=== PATIENT | female | born 1965 | race African-American/Black ===

== ENCOUNTER 2016-10-26 18:05 | Emergency (ER) | payer MEDICARE, MEDICAID ==
[~2016-10-26] VITALS: Ht 160 cm; Wt 76.8 kg
[~2016-10-26 18:05] MED LIST: ADIPEX-P37.5 MG PO; AMITRIPTYLINE H75 M1 PO; AMOXICILLIN 8751 TAB PO; ATIVAN2 MG PO; B/P MED; BACTRIM DS 8001 TAB PO; BYSTOLIC2.5 MG; CELEXA 20MG20 MG/TAB PO; CEPHALEXIN500 M1 PO; CHLORTHALID PO; CIPRO 500MG TA500 MG PO; COZAAR 25MG25 MG/TAB PO; COZAAR100 MG PO; HYGROTON25 MG PO; IMITREX 25MG TA25 MG PO; LEVAQUIN 750MG750 M1 PO; LORTAB 7.5/5001 TAB PO; NEURONTIN600 MG/TAB PO; NEXIUM 40MG40 MG PO; NORVASC 10MG10 MG PO; PERCOCET 325 MG1 TA2 PO; PHENERGAN 25 TA25 MG PO; PHENERGAN25 MG RC; PRIL40 PO; REGLAN 10MG10 MG/TAB PO; RESTORIL30 MG PO; RYBIX ODT50 MG; ULTRAM ER100 MG
[2016-10-26 18:07] VITALS: TEMP 98.8
[2016-10-26] MEDS ORDERED: MACROBID 1100 MG/CAP PO (18:13)
[2016-10-26] MEDS ORDERED: ZANAFLEX CAPSULE2 MG PO (18:16)
[2016-10-26] MEDS ORDERED: DESYREL 50MG50 MG PO (18:16)
[2016-10-26] MEDS ORDERED: RESTORIL30 MG (18:16)
[2016-10-26 18:51] LABS: PH 5 (5-8); URINE APPEARANCE Hazy; URINE BACTERIA None Seen /hpf; URINE BILIRUBIN Negative (NEGATIVE); URINE BLOOD Negative (NEGATIVE); URINE COLOR Yellow; URINE GLUCOSE Negative (NEGATIVE); URINE KETONE Negative (NEGATIVE); URINE UROBILINOGEN Negative (NEGATIVE)
[2016-10-26 19:00] LABS: ADJUSTED CALCIUM 9.4 mg/dL (8.4-10.2); ALANINE AMINOTRANSFERASE 31 U/L (9-52); ALBUMIN 3.8 gm/dL (3.5-5.0); ALKALINE PHOSPHATASE 101 U/L (50-136); ANION GAP 3 mmol/L (7-16); BILIRUBIN,TOTAL 0.6 mg/dL (0.0-1.0); BLOOD UREA NITROGEN 14 mg/dL (7-17); C-REACTIVE PROTEIN < 0.5 mg/dL (0.0-0.9); CALCIUM 9.2 mg/dL (8.4-10.2); CARBON DIOXIDE 25 mmol/L (22-30); CHLORIDE 105 mmol/L (98-107); GLUCOSE 87 mg/dL (74-106); LIPASE 93 U/L (23-300); POTASSIUM 3.6 mmol/L (3.4-5.0); SODIUM 133 mmol/L (137-145); TOTAL PROTEIN 7.1 gm/dL (6.4-8.2)
[2016-10-26 19:02] LABS: BASO % 0.6 % (0.0-2.0); EOS % 0.8 % (0-4.0); GRAN # 2.3 (1.4-6.5); GRAN % 42.9 % (42.2-75.2); LYMPH # 2.8 (1.2-3.4); LYMPH % 51.8 % (20.0-51.0); MEAN CELL VOLUME 93 fl (80.0-100.0); MEAN CORPUSCULAR HGB CONC 34 g/dl (33.0-37.0); MEAN PLATELET VOLUME 9.4 fl (7.4-10.4); MONO # 0.2 (0.1-0.6); MONO % 3.9 % (1.7-9.3); PLATELET COUNT 185 K/mm3 (130-400); RED BLOOD COUNT 3.59 M/mm3 (4.10-5.30); REDCELL DISTRIBUTION WIDTH-CV 12.3 % (11.5-14.5); WHITE BLOOD COUNT 5.3 K/mm3 (4.8-10.8)
[2016-10-26 19:03] LABS: HEMATOCRIT 33.5 % (37.0-47.0); HEMOGLOBIN 11.5 g/dl (12.5-16.0); MEAN CORPUSCULAR HEMOGLOBIN 32 pg (27.0-31.0)
[2016-10-26] MEDS ORDERED: ZOFRAN ODT4 MG PO (19:53)
[2016-10-26] MEDS ORDERED: NORCO 325 MG-51 TAB PO (19:53)
[2016-10-26 20:36] VITALS: BP 107/68; PULSE 70
[2016-11-20] MEDS ORDERED: CARAFATE 1GM1 G PO (15:52)
[2016-11-20] MEDS ORDERED: PRILOSEC 20MG20 MG PO (15:52)
== END 2016-10-26 20:38 | disposition home or self-care (01) ==
LOC: COL.ER 18:05
PROVIDERS: Emergency Medicine
DX: R10.13 Epigastric pain (principal); R11.2 Nausea with vomiting, unspecified; I10 Essential (primary) hypertension
CPT/HCPCS: J1170; J2405; J2550; J7030; Q9967

== ENCOUNTER → 2016-11-15 | Outpatient (CLI) | payer MEDICARE, MEDICAID ==
[~2016-11-15] MED LIST changes: +CARAFATE 1GM1 G PO; +DESYREL 50MG50 MG PO; +MACROBID 1100 MG/CAP PO; +NORCO 325 MG-51 TAB PO; +PRILOSEC 20MG20 MG PO; +RESTORIL30 MG; +ZANAFLEX CAPSULE2 MG PO; +ZOFRAN ODT4 MG PO
== END ==
LOC: COL.RAD 13:16
DX: M25.851 Other specified joint disorders, right hip (principal); R93.7 Abnormal findings on diagnostic imaging of other parts of musculoskeletal system
CPT/HCPCS: A9585; Q9967

== ENCOUNTER → 2016-11-20 | Outpatient (CLI) | payer MEDICARE, MEDICAID ==
[~2016-11-20] VITALS: Ht 160 cm; Wt 78.7 kg
[2016-11-20 15:54] VITALS: BP 127/73; PULSE 69
== END ==
LOC: LIGHT 09:21
DX: F32.89 Other specified depressive episodes (principal); Z98.84 Bariatric surgery status; E66.8 Other obesity; Z68.30 Body mass index [BMI] 30.0-30.9, adult; K43.9 Ventral hernia without obstruction or gangrene; Z93.3 Colostomy status

== ENCOUNTER → 2016-12-31 | Outpatient (CLI) | payer MEDICARE, MEDICAID | LOC: COL.RAD 08:00 | DX: R10.84 Generalized abdominal pain (principal); Z98.84 Bariatric surgery status ==

== ENCOUNTER 2017-08-15 11:13 | Emergency (ER) | payer MEDICARE, MEDICAID ==
[~2017-08-15] VITALS: Ht 160 cm; Wt 81.8 kg
[2017-08-15 11:21] VITALS: TEMP 98.5
[2017-08-15 12:56] LABS: BASO % 0.4 % (0.0-2.0); EOS # 0.1 (0.0-0.7); EOS % 1.3 % (0-4.0); GRAN # 2.8 (1.4-6.5); GRAN % 52.8 % (42.2-75.2); LYMPH # 2.1 (1.2-3.4); MEAN CELL VOLUME 96 fl (80.0-100.0); MEAN CORPUSCULAR HGB CONC 34 g/dl (33.0-37.0); MEAN PLATELET VOLUME 9.6 fl (7.4-10.4); MONO # 0.3 (0.1-0.6); MONO % 5.1 % (1.7-9.3); PLATELET COUNT 177 K/mm3 (130-400); RED BLOOD COUNT 3.64 M/mm3 (4.10-5.30); REDCELL DISTRIBUTION WIDTH-CV 12.8 % (11.5-14.5)
[2017-08-15 13:02] LABS: HEMATOCRIT 34.9 % (37.0-47.0); HEMOGLOBIN 11.8 g/dl (12.5-16.0); MEAN CORPUSCULAR HEMOGLOBIN 32 pg (27.0-31.0)
[2017-08-15 13:05] LABS: ALBUMIN 3.9 gm/dL (3.5-5.0); BILIRUBIN,TOTAL 0.6 mg/dL (0.0-1.0); C-REACTIVE PROTEIN 0.9 mg/dL (0.0-0.9); CREATININE, serum 0.66 mg/dL (0.52-1.25); POTASSIUM 3.8 mmol/L (3.4-5.0)
[2017-08-15 13:17] LABS: INFLUENZA A NEGATIVE; INFLUENZA B NEGATIVE
[2017-08-15 13:19] LABS: COLLECTION METHOD CLEAN CATCH
[2017-08-15 13:33] LABS: MUCOUS Present /lpf; PH 5 (5-8); URINE APPEARANCE Hazy; URINE BACTERIA Rare /hpf; URINE BILIRUBIN Negative (NEGATIVE); URINE BLOOD Negative (NEGATIVE); URINE COLOR Yellow; URINE GLUCOSE Negative (NEGATIVE); URINE KETONE Negative (NEGATIVE); URINE LEUKOCYTE ESTERASE Negative (NEGATIVE); URINE NITRATE Positive (NEGATIVE); URINE PROTEIN(semi-quant) Negative (NEGATIVE); URINE RBC 0-2 /hpf; URINE UROBILINOGEN Negative (NEGATIVE)
[2017-08-15] MEDS ORDERED: ZOFRAN ODT4 MG PO (15:38)
[2017-08-15] MEDS ORDERED: NORCO 325 MG-51 TAB PO (15:38)
[2017-08-15] MEDS ORDERED: CARAFATE 1GM1 G PO (15:47)
[2017-08-15] MEDS ORDERED: CEPHALEXIN500 M1 PO (16:02)
[2017-08-15 16:24] VITALS: BP 109/68; PULSE 67
== END 2017-08-15 16:30 | disposition home or self-care (01) ==
LOC: COL.ER 11:13
PROVIDERS: Emergency Medicine
DX: R10.9 Unspecified abdominal pain (principal); Z85.038 Personal history of other malignant neoplasm of large intestine; Z90.710 Acquired absence of both cervix and uterus; Z90.49 Acquired absence of other specified parts of digestive tract
CPT/HCPCS: J1170; J2405; J7030; Q9967

== ENCOUNTER 2017-08-18 10:34 | Emergency (ER) | payer MEDICARE, MEDICAID ==
[~2017-08-18] VITALS: Ht 160 cm; Wt 81.8 kg
[2017-08-18 10:42] VITALS: TEMP 98.3
[2017-08-18 11:24] LABS: COLLECTION METHOD CLEAN CATCH
[2017-08-18 11:27] LABS: BASO % 0.2 % (0.0-2.0); EOS # 0.1 (0.0-0.7); GRAN # 3.2 (1.4-6.5); GRAN % 65.2 % (42.2-75.2); LYMPH # 1.4 (1.2-3.4); LYMPH % 29.1 % (20.0-51.0); MEAN CELL VOLUME 94 fl (80.0-100.0); MEAN CORPUSCULAR HGB CONC 35 g/dl (33.0-37.0); MEAN PLATELET VOLUME 9.3 fl (7.4-10.4); MONO # 0.2 (0.1-0.6); MONO % 4.3 % (1.7-9.3); PLATELET COUNT 179 K/mm3 (130-400); RED BLOOD COUNT 3.57 M/mm3 (4.10-5.30); REDCELL DISTRIBUTION WIDTH-CV 12.3 % (11.5-14.5)
[2017-08-18 11:28] LABS: HEMATOCRIT 33.7 % (37.0-47.0); HEMOGLOBIN 11.7 g/dl (12.5-16.0); MEAN CORPUSCULAR HEMOGLOBIN 33 pg (27.0-31.0)
[2017-08-18 11:30] LABS: MUCOUS Present /lpf; PH 5 (5-8); SQUAMOUS EPITHELIAL 0-2 /hpf; URINE APPEARANCE Hazy; URINE BACTERIA None Seen /hpf; URINE BILIRUBIN Negative (NEGATIVE); URINE BLOOD Negative (NEGATIVE); URINE COLOR Amber; URINE GLUCOSE Negative (NEGATIVE); URINE KETONE Trace (NEGATIVE); URINE LEUKOCYTE ESTERASE Negative (NEGATIVE); URINE NITRATE Negative (NEGATIVE); URINE PROTEIN(semi-quant) Negative (NEGATIVE); URINE RBC 0-2 /hpf; URINE UROBILINOGEN Negative (NEGATIVE)
[2017-08-18 11:40] LABS: ALBUMIN 3.5 gm/dL (3.5-5.0); BILIRUBIN,TOTAL 0.6 mg/dL (0.0-1.0); C-REACTIVE PROTEIN 2.9 mg/dL (0.0-0.9); CALCIUM 9.2 mg/dL (8.4-10.2); CREATININE, serum 0.66 mg/dL (0.52-1.25); POTASSIUM 3.6 mmol/L (3.4-5.0); TOTAL PROTEIN 6.6 gm/dL (6.4-8.2)
[2017-08-18] MEDS ORDERED: LEVAQUIN 750MG750 M1 PO (14:58)
[2017-08-18] MEDS ORDERED: PHENERGAN 25 TA25 MG PO (14:58)
[2017-08-18 15:40] VITALS: BP 126/88; PULSE 68
[2017-08-20] MEDS ORDERED: NEXIUM 40MG40 MG PO (00:41)
== END 2017-08-18 15:40 | disposition home or self-care (01) ==
LOC: COL.ER 10:34
PROVIDERS: Emergency Medicine
DX: J18.9 Pneumonia, unspecified organism (principal); R11.2 Nausea with vomiting, unspecified; R10.13 Epigastric pain; Z93.3 Colostomy status; Z90.49 Acquired absence of other specified parts of digestive tract; Z85.038 Personal history of other malignant neoplasm of large intestine
CPT/HCPCS: J2405; J2550; J7030; Q9967

== ENCOUNTER → 2017-08-20 | Outpatient (CLI) | payer MEDICARE, MEDICAID ==
[2017-08-20 14:23] LABS: CHOLESTEROL RISK RATIO 1.6
[2017-08-20 14:54] LABS: THYROID STIMULATING HORMONE 0.795 uIU/mL (0.465-4.680)
== END ==
LOC: COL.LAB 09:25
PROVIDERS: Family Medicine
DX: Z13.220 Encounter for screening for lipoid disorders (principal); E03.9 Hypothyroidism, unspecified

== ENCOUNTER → 2017-08-29 | Outpatient (CLI) | payer MEDICARE, MEDICAID | LOC: COL.RAD 08:32 | DX: R06.00 Dyspnea, unspecified (principal) ==

== ENCOUNTER → 2017-11-04 | Outpatient (CLI) | payer MEDICARE, MEDICAID ==
[2017-11-04 11:16] LABS: BASO % 0.7 % (0.0-2.0); EOS # 0.1 (0.0-0.7); EOS % 1.5 % (0-4.0); GRAN # 2.2 (1.4-6.5); GRAN % 48.4 % (42.2-75.2); LYMPH # 2.1 (1.2-3.4); LYMPH % 45.7 % (20.0-51.0); MEAN CELL VOLUME 96 fl (80.0-100.0); MEAN CORPUSCULAR HEMOGLOBIN 32 pg (27.0-31.0); MEAN CORPUSCULAR HGB CONC 33 g/dl (33.0-37.0); MEAN PLATELET VOLUME 9.5 fl (7.4-10.4); MONO # 0.2 (0.1-0.6); MONO % 3.5 % (1.7-9.3); PLATELET COUNT 202 K/mm3 (130-400); RED BLOOD COUNT 3.77 M/mm3 (4.10-5.30); REDCELL DISTRIBUTION WIDTH-CV 12.4 % (11.5-14.5)
[2017-11-04 11:25] LABS: HEMATOCRIT 36.1 % (37.0-47.0)
[2017-11-04 11:30] LABS: ALBUMIN 3.6 gm/dL (3.5-5.0); BILIRUBIN,TOTAL 0.4 mg/dL (0.0-1.0); CALCIUM 8.7 mg/dL (8.4-10.2); CREATININE, serum 0.66 mg/dL (0.52-1.25); POTASSIUM 3.7 mmol/L (3.4-5.0)
== END ==
LOC: COL.LAB 10:27
PROVIDERS: Family Medicine
DX: I51.7 Cardiomegaly (principal); R06.89 Other abnormalities of breathing; R10.9 Unspecified abdominal pain; Z88.8 Allergy status to other drugs, medicaments and biological substances; Z88.1 Allergy status to other antibiotic agents; Z98.890 Other specified postprocedural states

== ENCOUNTER → 2018-03-10 | Outpatient (CLI) | payer MEDICARE, MEDICAID ==
[2018-03-10 16:44] LABS: BASO % 0.6 % (0.0-2.0); EOS % 0.8 % (0-4.0); GRAN # 2.4 (1.4-6.5); GRAN % 49.1 % (42.2-75.2); HEMATOCRIT 34.9 % (37.0-47.0); HEMOGLOBIN 11.9 g/dl (12.5-16.0); LYMPH # 2.2 (1.2-3.4); LYMPH % 45.4 % (20.0-51.0); MEAN CELL VOLUME 93 fl (80.0-100.0); MEAN CORPUSCULAR HEMOGLOBIN 32 pg (27.0-31.0); MEAN CORPUSCULAR HGB CONC 34 g/dl (33.0-37.0); MEAN PLATELET VOLUME 9.7 fl (7.4-10.4); MONO # 0.2 (0.1-0.6); MONO % 3.9 % (1.7-9.3); PLATELET COUNT 209 K/mm3 (130-400); RED BLOOD COUNT 3.77 M/mm3 (4.10-5.30); REDCELL DISTRIBUTION WIDTH-CV 12.8 % (11.5-14.5)
[2018-03-10 16:51] LABS: ALBUMIN 3.7 gm/dL (3.5-5.0); BILIRUBIN,TOTAL 0.5 mg/dL (0.0-1.0); CALCIUM 8.9 mg/dL (8.4-10.2); CREATININE, serum 0.76 mg/dL (0.52-1.25); POTASSIUM 4.3 mmol/L (3.4-5.0); TOTAL PROTEIN 6.8 gm/dL (6.4-8.2)
[2018-03-10 17:22] LABS: TSH w REFLEX 0.22 uIU/mL (0.465-4.680)
== END ==
LOC: COL.LAB 14:47
PROVIDERS: Family Medicine
DX: E03.9 Hypothyroidism, unspecified (principal); R10.9 Unspecified abdominal pain

== ENCOUNTER → 2018-05-08 | Outpatient (CLI) | payer BC, MEDICAID, MEDICARE ==
[2018-05-08 17:01] LABS: BASO % 0.2 % (0.0-2.0); EOS # 0.1 (0.0-0.7); EOS % 1.1 % (0-4.0); GRAN # 2.4 (1.4-6.5); GRAN % 51.7 % (42.2-75.2); HEMOGLOBIN 11.5 g/dl (12.5-16.0); LYMPH # 1.9 (1.2-3.4); LYMPH % 41.8 % (20.0-51.0); MEAN CELL VOLUME 94 fl (80.0-100.0); MEAN CORPUSCULAR HEMOGLOBIN 32 pg (27.0-31.0); MEAN CORPUSCULAR HGB CONC 34 g/dl (33.0-37.0); MEAN PLATELET VOLUME 10.1 fl (7.4-10.4); MONO # 0.2 (0.1-0.6); PLATELET COUNT 200 K/mm3 (130-400); RED BLOOD COUNT 3.61 M/mm3 (4.10-5.30); REDCELL DISTRIBUTION WIDTH-CV 12.7 % (11.5-14.5)
[2018-05-08 17:06] LABS: HEMATOCRIT 33.9 % (37.0-47.0)
[2018-05-08 17:54] LABS: TOTAL IRON BINDING CAPACITY 359 ug/dL (265-497)
[2018-05-08 18:21] LABS: FERRITIN 40 ng/mL (11-264)
[2018-05-08 18:38] LABS: IRON,SERUM 82 ug/dL (35-150)
== END ==
LOC: COL.LAB 15:14
PROVIDERS: Family Medicine
DX: D64.9 Anemia, unspecified (principal)

== ENCOUNTER → 2019-01-01 | Outpatient (CLI) | payer BC, MEDICARE, MEDICAID | LOC: COL.RAD 09:44 | DX: M71.551 Other bursitis, not elsewhere classified, right hip (principal) | CPT/HCPCS: J3301; Q9967 ==

== ENCOUNTER 2019-04-06 06:55 | Emergency (ER) | payer BC, MEDICARE, MEDICAID ==
[~2019-04-06] VITALS: Ht 160 cm; Wt 97.7 kg
[2019-04-06 07:04] VITALS: TEMP 98.5
[2019-04-06 08:01] LABS: BASO % 0.6 % (0.0-2.0); EOS # 0.1 (0.0-0.7); GRAN # 3.2 (1.4-6.5); GRAN % 65.3 % (42.2-75.2); LYMPH # 1.3 (1.2-3.4); LYMPH % 27.7 % (20.0-51.0); MEAN CELL VOLUME 94 fl (80.0-100.0); MEAN CORPUSCULAR HEMOGLOBIN 32 pg (27.0-31.0); MEAN CORPUSCULAR HGB CONC 34 g/dl (33.0-37.0); MEAN PLATELET VOLUME 9.8 fl (7.4-10.4); MONO # 0.2 (0.1-0.6); PLATELET COUNT 201 K/mm3 (130-400); RED BLOOD COUNT 3.75 M/mm3 (4.10-5.30); REDCELL DISTRIBUTION WIDTH-CV 12.7 % (11.5-14.5)
[2019-04-06 08:04] LABS: HEMATOCRIT 35.3 % (37.0-47.0)
[2019-04-06] MEDS ORDERED: RESTORIL 1515 MG/CAP PO (08:12)
[2019-04-06] MEDS ORDERED: CEFTIN500 MG PO (08:12)
[2019-04-06] MEDS ORDERED: DESYREL 100MG100 MG PO (08:13)
[2019-04-06] MEDS ORDERED: BRINTELLIX20 PO (08:13)
[2019-04-06] MEDS ORDERED: ERGOCALCIFER50000 IU PO (08:13)
[2019-04-06] MEDS ORDERED: B-121000 MCG PO (08:14)
[2019-04-06] MEDS ORDERED: SYNTHROID0.05 MG/TA PO (08:14)
[2019-04-06 08:15] LABS: ALBUMIN 3.7 gm/dL (3.5-5.0); BILIRUBIN,TOTAL 0.4 mg/dL (0.0-1.0); C-REACTIVE PROTEIN 0.5 mg/dL (0.0-0.9); CALCIUM 9.2 mg/dL (8.4-10.2); CREATININE, serum 0.68 (0.52-1.25); POTASSIUM 3.9 mmol/L (3.4-5.0); TOTAL PROTEIN 6.8 gm/dL (6.4-8.2)
[2019-04-06 10:04] LABS: COLLECTION METHOD CLEAN CATCH
[2019-04-06 10:14] LABS: MUCOUS Present /lpf; PH 5 (5-8); SQUAMOUS EPITHELIAL 0-2 /hpf; URINE APPEARANCE Clear; URINE BACTERIA None Seen /hpf; URINE BILIRUBIN Negative (NEGATIVE); URINE BLOOD Negative (NEGATIVE); URINE COLOR Yellow; URINE GLUCOSE Negative (NEGATIVE); URINE KETONE Negative (NEGATIVE); URINE LEUKOCYTE ESTERASE Negative (NEGATIVE); URINE NITRATE Negative (NEGATIVE); URINE PROTEIN(semi-quant) Negative (NEGATIVE); URINE RBC 0-2 /hpf; URINE UROBILINOGEN Negative (NEGATIVE)
[2019-04-06] MEDS ORDERED: NORCO 325 MG-51 TAB PO (11:17)
[2019-04-06] MEDS ORDERED: ZOFRAN ODT4 MG PO (11:17)
[2019-04-06 12:15] VITALS: BP 116/81; PULSE 60
== END 2019-04-06 12:20 | disposition home or self-care (01) ==
LOC: COL.ER 06:55
PROVIDERS: Emergency Medicine
DX: K43.5 Parastomal hernia without obstruction or gangrene (principal); Z98.84 Bariatric surgery status; Z90.49 Acquired absence of other specified parts of digestive tract; Z90.710 Acquired absence of both cervix and uterus
CPT/HCPCS: J1170; J2405; J7030; Q9967

== ENCOUNTER 2019-05-13 11:24 | Day surgery (SDC) | payer BC, MEDICARE, MEDICAID ==
[2019-05-13] VITALS (8 sets, daily range): BP systolic 97–123; BP diastolic 51–73; PULSE 56–79; TEMP 97.5
[~2019-05-13 11:24] MED LIST changes: +B-121000 MCG PO; +BRINTELLIX20 PO; +CEFTIN500 MG PO; +DESYREL 100MG100 MG PO; +ERGOCALCIFER50000 IU PO; +RESTORIL 1515 MG/CAP PO; +SYNTHROID0.05 MG/TA PO
[2019-05-13] MEDS ORDERED: PROTONIX20 MG PO (12:04)
[2019-05-13] MEDS ORDERED: ZYRTEC 10MG10 MG PO (12:05)
[2019-05-13] MEDS ORDERED: FLONASE NASAL S16 GM NS (12:05)
--- NOTE | 2019-05-14 02:55 | NUR ---
PATIENT TO ROOM 349 AT 1925. DROWSY BUT ALERT TO SOUND AND TOUCH. DENIES PAIN. PATIENT VERY COLD AND SHIVERING, GIVEN WARM BLANKET. VSS STABLE. PATIENT GOT UP TO BATHROOM AND HAD SOME DIZZINESS AND NAUSEA. HAD UNMEASURED VOID. GIVEN SADAF AND ZOFRAN PRN TO CONTROL PAIN AND NAUSEA. NO FURTHER NEEDS AT THIS TIME. WILL CONTINUE TO MONITOR.
[2019-05-14 04:20] VITALS: BP 92/47; PULSE 64; TEMP 97.7
[2019-05-14 06:54] LABS: BASO % 0.2 % (0.0-2.0); GRAN # 5.3 (1.4-6.5); GRAN % 83.4 % (42.2-75.2); HEMOGLOBIN 11.5 g/dl (12.5-16.0); LYMPH # 0.7 (1.2-3.4); LYMPH % 11.6 % (20.0-51.0); MEAN CELL VOLUME 95 fl (80.0-100.0); MEAN CORPUSCULAR HEMOGLOBIN 32 pg (27.0-31.0); MEAN CORPUSCULAR HGB CONC 34 g/dl (33.0-37.0); MEAN PLATELET VOLUME 10.6 fl (7.4-10.4); MONO # 0.3 (0.1-0.6); MONO % 4.5 % (1.7-9.3); PLATELET COUNT 172 K/mm3 (130-400); RED BLOOD COUNT 3.61 M/mm3 (4.10-5.30); REDCELL DISTRIBUTION WIDTH-CV 12.4 % (11.5-14.5)
[2019-05-14 06:57] LABS: HEMATOCRIT 34.1 % (37.0-47.0)
[2019-05-14 07:03] LABS: CALCIUM 9.1 mg/dL (8.4-10.2); CREATININE, serum 0.85 (0.52-1.25); POTASSIUM 4.4 mmol/L (3.4-5.0)
[2019-05-14 07:53] VITALS: BP 95/50; PULSE 68; TEMP 98.2
--- NOTE | 2019-05-14 08:40 | NUR ---
Patient in bed resting. Family at bedside. Alert and oriented x 3. Assessment complete. Ostomy to right quadrant, appliance intact. Lap sites x 4 with bandaids, CDI. States pain to abdomen 5/10, would like to wait for scheduled pain medication. Denies further needs at this time.
--- NOTE | 2019-05-14 10:04 | NUR ---
pond worker met with patient and her spouse to discuss discharge planning. Patient states she lives with spouse and will return upon discharge. Patient states she is independent with activities of daily living and that Dr Vane Marcus is her primary care provider. Patient denies difficulty obtaining her prescriptions and discharge concerns. Patient stated she does not have any advance directives, however, needs to make them. Worker provided copies of living will and durable power of criminal attorney for health care for patient and spouse.
--- NOTE | 2019-05-14 11:24 | NUR ---
Initial visit; Patient and her thanked [employer] Lead Teacher for looking in on her, offering God's blessings and keeping her in [employer] Lead Teacher's prayers.
[2019-05-14 11:51] VITALS: BP 109/61; PULSE 69; TEMP 98.3
[2019-05-14 16:50] VITALS: BP 103/63; PULSE 63; TEMP 98.3
--- NOTE | 2019-05-14 18:14 | NUR ---
Patient has done well throughout the day. Has been up to restroom with 1 assist, steady gait. Requested pain medications throughout the day, medications given per orders. Patient takes care of her own ostomy. Denies pain or further needs at this time. Advanced to full liquid diet, patient states mild nausea after full liquid diet. 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
[2019-05-14 19:36] VITALS: BP 110/48; PULSE 66; TEMP 97.8
[2019-05-15] VITALS: BP 108/60; PULSE 67; TEMP 97.9
--- NOTE | 2019-05-15 02:38 | NUR ---
Patient very pleasant. Pain well controlled. PRN Tramadol given x1 this shift. INT to right wrist infiltrated. Restart 22G to left forearm, flushes with ease. Tolerating full liquids well. Patient resting in bed. Denies any further needs. Will continue to monitor.
[2019-05-15 04:00] VITALS: BP 109/58; PULSE 67; TEMP 98
--- NOTE | 2019-05-15 08:30 | NUR ---
Patient in bed resting. Alert and oriented x 3. Shift assessment complete. Patient states nausea is "much better" after zofran administration this AM. States pain is tolerable at this time. Lap sites remain CDI with bandaids. Patient takes care of her own ostomy and appliance. Denies further needs at this time.
[2019-05-15 09:09] VITALS: BP 96/57; PULSE 62; TEMP 98.7
[2019-05-15 12:21] VITALS: BP 110/74; PULSE 62; TEMP 97.7
[2019-05-15] MEDS ORDERED: ZOFRAN 4MG T4 MG/TAB PO (14:40)
[2019-05-15] MEDS ORDERED: NORCO 325 MG-51 TAB PO (14:41)
--- NOTE | 2019-05-15 15:20 | NUR ---
Discharge education provided to patient. Educated on signs and symptoms of infection. Patient educated on pain medication and medication safety. All questions answered. INT to discontinued, catheter tip intact. Denies further needs at this time. Patient out by wheelchair with surgical staff and spouse.
[2019-05-15 16:17] VITALS: BP 95/51; PULSE 73; TEMP 98.2
== END 2019-05-15 15:20 | disposition home or self-care (01) ==
LOC: SDCO 11:24 → EDSTATUS 13:15 → SURG 13:15 → SDCO 05-15 15:20
PROVIDERS: Surgery
DX: K43.5 Parastomal hernia without obstruction or gangrene (principal); K66.0 Peritoneal adhesions (postprocedural) (postinfection); Z79.01 Long term (current) use of anticoagulants; Z79.899 Other long term (current) drug therapy; Z98.84 Bariatric surgery status; I10 Essential (primary) hypertension; Z85.038 Personal history of other malignant neoplasm of large intestine; G47.33 Obstructive sleep apnea (adult) (pediatric); K21.9 Gastro-esophageal reflux disease without esophagitis; E07.9 Disorder of thyroid, unspecified; F32.9 Major depressive disorder, single episode, unspecified; Z90.710 Acquired absence of both cervix and uterus; Z90.49 Acquired absence of other specified parts of digestive tract; Z80.9 Family history of malignant neoplasm, unspecified; Z80.0 Family history of malignant neoplasm of digestive organs; Z80.1 Family history of malignant neoplasm of trachea, bronchus and lung; R51 Headache; E66.9 Obesity, unspecified; Z68.39 Body mass index [BMI] 39.0-39.9, adult
CPT/HCPCS: OP; A9284; C1781; J0690; J1100; J1650; J1885; J2405; J2704; J7120

== ENCOUNTER 2019-09-09 06:22 | Emergency (ER) | payer BC, MEDICARE, MEDICAID ==
[~2019-09-09] VITALS: Ht 160 cm; Wt 94.5 kg
[~2019-09-09 06:22] MED LIST changes: +FLONASE NASAL S16 GM NS; +PROTONIX20 MG PO; +ZOFRAN 4MG T4 MG/TAB PO; +ZYRTEC 10MG10 MG PO
[2019-09-09 06:29] VITALS: BP 121/75; TEMP 99.3
[2019-09-09] MEDS ORDERED: PHENERGAN W/CO120 M1 PO (08:18)
[2019-09-09] MEDS ORDERED: LEVAQUIN 750MG750 M1 PO (09:20)
[2019-09-09 09:52] VITALS: PULSE 88
== END 2019-09-09 11:05 | disposition home or self-care (01) ==
LOC: COL.ER 06:22
DX: J18.9 Pneumonia, unspecified organism (principal); Z85.038 Personal history of other malignant neoplasm of large intestine; Z79.51 Long term (current) use of inhaled steroids
CPT/HCPCS: J1100

== ENCOUNTER 2019-09-17 13:36 | Emergency (ER) | payer BC, MEDICARE, MEDICAID ==
[~2019-09-17] VITALS: Ht 160 cm; Wt 92.7 kg
[~2019-09-17 13:36] MED LIST changes: +PHENERGAN W/CO120 M1 PO
[2019-09-17 13:51] VITALS: TEMP 98.7
[2019-09-17 14:59] LABS: BASO % 0.2 % (0.0-2.0); EOS % 0.6 % (0-4.0); GRAN # 2.7 (1.4-6.5); GRAN % 51.5 % (42.2-75.2); HEMATOCRIT 39.2 % (37.0-47.0); HEMOGLOBIN 13.2 g/dl (12.5-16.0); LYMPH # 2.3 (1.2-3.4); LYMPH % 43.9 % (20.0-51.0); MEAN CELL VOLUME 93 fl (80.0-100.0); MEAN CORPUSCULAR HEMOGLOBIN 31 pg (27.0-31.0); MEAN CORPUSCULAR HGB CONC 34 g/dl (33.0-37.0); MEAN PLATELET VOLUME 9.7 fl (7.4-10.4); MONO # 0.2 (0.1-0.6); MONO % 3.4 % (1.7-9.3); PLATELET COUNT 253 K/mm3 (130-400); RED BLOOD COUNT 4.23 M/mm3 (4.10-5.30); REDCELL DISTRIBUTION WIDTH-CV 13.2 % (11.5-14.5)
[2019-09-17 15:23] LABS: ALANINE AMINOTRANSFERASE 17 U/L (9-52); ALBUMIN 4.2 gm/dL (3.5-5.0); ALKALINE PHOSPHATASE 130 U/L (50-136); ANION GAP 7 mmol/L (7-16); AST,SGOT 22 U/L (15-37); BILIRUBIN,TOTAL 0.5 mg/dL (0.0-1.0); BLOOD UREA NITROGEN 13 mg/dL (7-17); CALCIUM 9.2 mg/dL (8.4-10.2); CARBON DIOXIDE 27 mmol/L (22-30); CHLORIDE 106 mmol/L (98-107); CREATININE, serum 0.59 (0.52-1.25); GLUCOSE 104 mg/dL (74-106); POTASSIUM 3.8 mmol/L (3.4-5.0); SODIUM 140 mmol/L (137-145); TOTAL PROTEIN 7.7 gm/dL (6.4-8.2)
[2019-09-17 15:25] LABS: C-REACTIVE PROTEIN < 0.5 mg/dL (0.0-0.9)
[2019-09-17 16:04] VITALS: BP 99/44; PULSE 74
== END 2019-09-17 16:04 | disposition home or self-care (01) ==
LOC: COL.ER 13:36
PROVIDERS: Emergency Medicine
DX: J06.9 Acute upper respiratory infection, unspecified (principal); J40 Bronchitis, not specified as acute or chronic; E03.9 Hypothyroidism, unspecified; Z79.51 Long term (current) use of inhaled steroids
CPT/HCPCS: J7030

== ENCOUNTER 2019-10-07 21:06 | Emergency (ER) | payer BC, MEDICARE, MEDICAID ==
[~2019-10-07] VITALS: Ht 160 cm; Wt 92.7 kg
[2019-10-07] MEDS ORDERED: TAMIFLU 75MG75 MG PO (22:07)
[2019-10-07 23:25] VITALS: BP 122/67; PULSE 66; TEMP 98.2
== END 2019-10-07 23:30 | disposition home or self-care (01) ==
LOC: COL.ER 21:06
DX: J10.1 Influenza due to other identified influenza virus with other respiratory manifestations (principal); Z79.51 Long term (current) use of inhaled steroids
CPT/HCPCS: J1170; J2405; J7030

== ENCOUNTER → 2020-02-08 | Outpatient (CLI) | payer MEDICARE, MEDICAID ==
[~2020-02-08] MED LIST changes: +TAMIFLU 75MG75 MG PO
== END ==
LOC: COL.RAD 08:08
DX: R11.0 Nausea (principal)
CPT/HCPCS: A9541

== ENCOUNTER → 2020-04-19 | Outpatient (CLI) | payer MEDICARE, MEDICAID | LOC: ZCOL.LAB 11:03 | DX: M79.605 Pain in left leg (principal) ==